=== PATIENT | female | born 1965 | race African-American/Black ===

== ENCOUNTER 2016-12-02 07:03 | Inpatient (IN) | payer OTHER ==
[~2016-12-02] VITALS: Ht 172.7 cm; Wt 70.3 kg
[2016-12-02] MEDS ORDERED: AMLO10TA80 PO (07:21)
[2016-12-02] MEDS ORDERED: ASPIRIN 81MG TABLET PO ONE (07:45)
[2016-12-02] MEDS ORDERED: NITROGLYCERIN OINT 1GM/INCH UDPKT TD ONE ×2 (07:45→08:07)
[2016-12-02 08:07] LABS: BASOPHILS % 0.5 % (0.0-2.0); EOSINOPHILS % 1.7 % (0.0-5.0); HEMATOCRIT. 40.1 % (36.0-48.0); HEMOGLOBIN. 13.6 g/dL (12.0-16.0); LYMPHOCYTES % 27.1 % (20.0-50.0); MEAN CORPUSCULAR HGB CONC 33.9 g/dL (31.0-37.0); MEAN CORPUSCULAR VOLUME 94.7 fL (81.0-99.0); MEAN PLATELET VOLUME 8.6 fl (7.4-10.4); MONOCYTES % 6.6 % (2.0-8.0); NEUTROPHILS % 64.1 % (40.0-76.0); PLATELET 230 x1000/uL (130-400); RED BLOOD CELL COUNT 4.24 mill/uL (4.2-5.4); RED CELL DISTRIBUTION WIDTH 14.9 % (11.6-14.6); WHITE BLOOD COUNT 6.2 x1000/uL (4.5-11.0)
[2016-12-02] MEDS ORDERED: ASPIRIN 81MG TABLET ONE (08:08)
[2016-12-02 08:25] LABS: D-DIMER 0.56 mg/L FEU (<0.50); PROTHROMBIN TIME 10.7 sec
[2016-12-02 08:28] LABS: ALANINE AMINOTRANSFERASE 41 IU/L (13-61); ALBUMIN 4.1 g/dL (3.4-5.0); ANION GAP 17; CALCIUM 8.9 mg/dL (8.5-10.1); CARBON DIOXIDE 26 mEq/L (21-32); CHLORIDE 106 mEq/L (98-107); INDEX HEMOLYSI 1 (1-3); INDEX ICTERIC 1 (1-4); INDEX LIPEMIC 1 (1-3); UREA NITROGEN BLOOD 11 mg/dL (7-21); eGFR > 60 mL/min (>60)
[2016-12-02 08:31] LABS: NT PRO B-TYPE NATRIURETIC PEP 5 pg/mL (5-125); TROPONIN I < 0.02 ng/mL (0.00-0.04)
[2016-12-02 09:11] LABS: CLARITY URINE CLEAR (CLEAR); COLOR URINE YELLOW (YELLOW); GLUCOSE URINE NEGATIVE (NEGATIVE); KETONES URINE TRACE (NEGATIVE); LEUKOCYTE ESTERASE URINE 1+ (NEGATIVE); NITRITE URINE NEGATIVE (NEGATIVE); OCCULT BLOOD URINE 1+ (NEGATIVE); PROTEIN URINE NEGATIVE (NEGATIVE); SPECIFIC GRAVITY URINE 1.015 (1.005-1.030)
[2016-12-02 09:25] LABS: BACTERIA URINE TRACE; SQUAMOUS EPITHELIAL CELL URINE 1+ /lpf (RARE/1+)
[2016-12-02 09:26] LABS: MUCUS URINE 1+ /lpf (< = 2+)
[2016-12-02] MEDS ORDERED: SODIUM CHLORIDE 0.9% 10ML VIAL ONE (12:21)
[2016-12-02] MEDS ORDERED: IOHEXOL-350 100 ML BOTTLE ONE (12:21)
[2016-12-02 15:01] VITALS: BP_SYST 154; BP_SYST 155; BP_DIAS 95
[2016-12-02] MEDS ORDERED: CLONIDINE 0.1MG TABLET PO PRN (16:15)
[2016-12-02] MEDS ORDERED: HYDROCODONE/ACETAMINOPHEN 5/325MG TABLET PO PRN (16:15)
[2016-12-02] MEDS: ENOXAPARIN 40MG/0.4ML SYR SUBCUT SCH (17:37)
[2016-12-02 20:00] VITALS: BP 109/67
[2016-12-03] VITALS: BP 123/83
[2016-12-03 04:00] VITALS: BP 119/82
[2016-12-03 06:38] LABS: CHLORIDE 101 mEq/L (98-107); INDEX HEMOLYSI 1 (1-3); INDEX ICTERIC 1 (1-4); INDEX LIPEMIC 1 (1-3)
[2016-12-03 07:26] LABS: ALANINE AMINOTRANSFERASE 32 IU/L (13-61); ALBUMIN 3.5 g/dL (3.4-5.0); ANION GAP 15; CARBON DIOXIDE 28 mEq/L (21-32); CREATINE KINASE 115 IU/L (26-192); CREATINE KINASE MB FRACTION 0.5 ng/mL (0.5-3.6); TROPONIN I < 0.02 ng/mL (0.00-0.04); UREA NITROGEN BLOOD 10 mg/dL (7-21); eGFR > 60 mL/min (>60)
[2016-12-03 07:28] LABS: BASOPHILS % 0.7 % (0.0-2.0); EOSINOPHILS % 3.6 % (0.0-5.0); HEMOGLOBIN. 12.7 g/dL (12.0-16.0); LYMPHOCYTES % 30.8 % (20.0-50.0); MEAN CORPUSCULAR HEMOGLOBIN 32.1 pg (28.0-32.0); MEAN CORPUSCULAR HGB CONC 34.3 g/dL (31.0-37.0); MEAN CORPUSCULAR VOLUME 93.5 fL (81.0-99.0); MEAN PLATELET VOLUME 8.7 fl (7.4-10.4); NEUTROPHILS % 56.9 % (40.0-76.0); PLATELET 230 x1000/uL (130-400); RED BLOOD CELL COUNT 3.96 mill/uL (4.2-5.4); RED CELL DISTRIBUTION WIDTH 14.7 % (11.6-14.6); WHITE BLOOD COUNT 5.5 x1000/uL (4.5-11.0)
[2016-12-03 08:00] VITALS: BP 132/79
[2016-12-03 11:49] LABS: *AMPHETAMINES SCREEN URINE NEGATIVE (NEGATIVE); *BARBITURATES SCREEN URINE NEGATIVE (NEGATIVE); *BENZODIAZEPINES SCREEN URINE NEGATIVE (NEGATIVE); *COCAINE SCREEN URINE NEGATIVE (NEGATIVE); CANNABINOID URINE SCREEN NEGATIVE (NEGATIVE); ECSTASY MDMA SCREEN URINE NEGATIVE (NEGATIVE); METHADONE URINE SCREEN NEGATIVE (NEGATIVE); OPIATES URINE SCREEN NEGATIVE (NEGATIVE); PHENCYCLIDINE URINE SCREEN NEGATIVE (NEGATIVE)
[2016-12-03 12:42] VITALS: BP 140/98
[2016-12-03 15:53] VITALS: BP 118/70
[2016-12-03] MEDS: ENOXAPARIN 40MG/0.4ML SYR SUBCUT SCH (15:57)
[2016-12-03 16:52] VITALS: BP 114/70
[2016-12-03] MEDS ORDERED: ATORVASTATIN CALCIUM 10MG TABLET PO SCH (21:00)
== END 2016-12-03 17:45 | disposition home or self-care (01) | DRG 313 ==
LOC: ER 07:45 → 8WST 13:01
PROVIDERS: ADMIT Internal Medicine; ATTEND Internal Medicine
DX: R07.89 Other chest pain (principal); I10 Essential (primary) hypertension; E78.5 Hyperlipidemia, unspecified; F17.210 Nicotine dependence, cigarettes, uncomplicated; F10.20 Alcohol dependence, uncomplicated; K76.0 Fatty (change of) liver, not elsewhere classified; I83.90 Asymptomatic varicose veins of unspecified lower extremity
CPT/HCPCS: 36415; 70544; 70553; 71010; 71275; 80053; 80061; 80305; 81001; 82550; 82553; 83880; 84484; 85025; 85379; 85610; 85651; 93005; 93306; 93880; 99285; A4216; J1650; Q9967

== ENCOUNTER 2018-09-13 09:40 | Emergency (ER) | payer OTHER ==
[~2018-09-13] VITALS: Ht 162.6 cm; Wt 100.0 kg
[~2018-09-13 09:40] MED LIST: AMLO10TA80 PO
[2018-09-13] MEDS ORDERED: PSEUDOEPHEDRINE HCL 30MG TABLET PO STA (11:50)
[2018-09-13 12:14] VITALS: BP 171/79
== END 2018-09-13 12:14 | disposition home or self-care (01) ==
LOC: ER 09:40
DX: R51 Headache (principal); B34.9 Viral infection, unspecified; R03.0 Elevated blood-pressure reading, without diagnosis of hypertension
CPT/HCPCS: 99281

== ENCOUNTER 2020-01-02 10:07 | Emergency (ER) | payer OTHER ==
[~2020-01-02] VITALS: Ht 172.7 cm; Wt 76.0 kg
[2020-01-02] MEDS ORDERED: FAMOTIDINE 20MG/2ML VIAL IV STA (10:32)
[2020-01-02] MEDS ORDERED: SODIUM CHLORIDE 0.9% 1,000 ML IV ONE (10:32)
[2020-01-02] MEDS ORDERED: KETOROLAC 30MG/ML VIAL IV STA (10:32)
[2020-01-02] MEDS ORDERED: ONDANSETRON HCL 4MG/2ML INJ IV STA (10:32)
[2020-01-02 11:14] LABS: EOSINOPHILS % 0.4 % (0.0-5.0); HEMOGLOBIN. 13.3 g/dL (12.0-16.0); MEAN CORPUSCULAR VOLUME 94.7 fL (81.0-99.0); MEAN PLATELET VOLUME 8.3 fl (7.4-10.4); MONOCYTES % 5.1 % (2.0-8.0); NEUTROPHILS % 61.5 % (40.0-76.0); PLATELET 243 x1000/uL (130-400); RED BLOOD CELL COUNT 4.01 mill/uL (4.2-5.4); RED CELL DISTRIBUTION WIDTH 14.6 % (11.6-14.6)
[2020-01-02 11:21] LABS: CHLORIDE 103 mEq/L (98-107)
[2020-01-02 12:55] LABS: CLARITY URINE CLOUDY (CLEAR); COLOR URINE DK YELLOW (YELLOW); KETONES URINE TRACE (NEGATIVE); LEUKOCYTE ESTERASE URINE TRACE (NEGATIVE); NITRITE URINE NEGATIVE (NEGATIVE); OCCULT BLOOD URINE NEGATIVE (NEGATIVE); PROTEIN URINE TRACE (NEGATIVE); SPECIFIC GRAVITY URINE 1.015 (1.005-1.030)
[2020-01-02 15:21] VITALS: BP 130/88
== END 2020-01-02 15:23 | disposition home or self-care (01) ==
LOC: ER 10:07
DX: R19.7 Diarrhea, unspecified (principal); R11.10 Vomiting, unspecified; N39.0 Urinary tract infection, site not specified; E16.2 Hypoglycemia, unspecified; I10 Essential (primary) hypertension; R79.89 Other specified abnormal findings of blood chemistry
CPT/HCPCS: 36415; 80053; 81003; 82962; 83690; 85025; 96360; 96361; 99283; J7030; J1885; J2405